=== PATIENT | male | born 1990 | race Caucasian/White ===

== ENCOUNTER 2024-06-20 12:35 | Emergency (ER) | payer OTHER, SELFPAY ==
[2024-06-20 12:40] VITALS: BP 146/74
--- NOTE | 2024-06-20 15:20 | ED.GENMED ---
History of Present Illness
<Elena Russo PA-C - Last Filed: 06/20/24 18:31>
General
Chief Complaint: Chest Pain
Source: patient
Exam Limitations: none
Time Seen by Provider: 06/20/24 14:52
History of Present Illness
History of Present Illness:
34yoM with a history of colitis presenting for evaluation of chest pain. Patient was walking around his house around noon today when he started to experience a tingling sensation in the left arm. This was followed by left sided chest discomfort. He
reports a tightness sensation in his anterior L chest. Pain radiates to the back and his L upper back pain is described as stabbing. His left arm paresthesias are intermittent. Of note, patient is currently on doxycycline for bronchitis. He denies
any diaphoresis, nausea, vomiting, shortness of breath. No tobacco use and he denies any family history of coronary artery disease.
Past History
<Elena Russo PA-C - Last Filed: 06/20/24 18:31>
Past History
ED Past Medical History: Other (Drug abuse)
ED Past Surgical History: None
Patient has exhibited threatening behavior?: No
PSI?: No
Social History
Tobacco: Non-smoker
Alcohol: Former
Drug: Cocaine
Personal: Single
Living: alone
Employment: Employed
Family History
Family History: Other (Noncontributory)
Phy Exam
<Elena Russo PA-C - Last Filed: 06/20/24 18:31>
General Physical Exam
General Presentation: well appearing and no apparent distress
General age: appears stated age
General Skin: warm and dry
General Habitus: normal
ENT Exam
ENT Exam: normocephalic
Cardiovascular Exam
Cardiovascular Exam: regular rate/rhythm, no murmur and normal peripheral pulses (2+ radial pulses bilaterally)
Pulmonary Exam
Pulmonary Exam: lungs clear, no respiratory distress, no rales, no crackles and no rhonchi
Neurological Exam
Neurological Exam: alert
[place] Coma Scale
Eye Opening: Spontaneous
Verbal Response: Oriented
Motor Response: Obeys Commands
GCS Total Score: 15
Skin Exam
Skin Exam: normal color and warm/dry
Psychiatric Exam
Psychiatric Exam: normal mood/affect
<Nela Sigala PA-C - Last Filed: 06/20/24 18:23>
[place] Coma Scale
GCS Total Score: 15
Scores
<Elena Russo PA-C - Last Filed: 06/20/24 18:31>
Heart Score for Chest Pain Patients
STEMI patient?: No
History: Slightly or Non-Suspicious
ECG: Normal
Age: </= 45 years
Risk Factors: No Risk Factors
Troponin: </= Normal Limit
Heart Score for Chest Pain Patients: 0
Heart Score Risk: 2.5% MACE over next 6 weeks
Course
<Elena Russo PA-C - Last Filed: 06/20/24 18:31>
Orders/Labs/Results
Orders:
Orders
06/20/24 12:35
ECG [Electrocardiogram (*1)] Urgent
Reason for Study: Chest Pain
EKG- Treatment ONCE
06/20/24 15:19
CT Chest/abd/pelvis Angio W/wo Urgent
Comment:
Reason For Exam: L sided CP radiating to back, L arm paresthesias
06/20/24 15:28
Complete Blood Count/With Diff Urgent
Comprehensive Metabolic Panel Urgent
Troponin I Urgent
06/20/24 17:06
EKG- Treatment ONCE
06/20/24 17:19
Troponin I Urgent
06/20/24 17:30
Electrocardiogram (*1) Urgent
Reason for Study: Chest Pain
Abnormal Lab Results
06/20/24
15:28
Abs Immat Gran (auto) 0.1 H 10^3/uL
(0-0.05)
Absolute Neuts (auto) 7.0 H 10^3/uL
(1.4-6.5)
Immature Gran % 0.6 H %
(0-0.5)
Neutrophils % 79.5 H %
(42.2-75.2)
Lymphocytes % 13.1 L %
(20.5-51.1)
Carbon Dioxide 31 H mmol/L
(22-30)
06/20/24 15:28
06/20/24 15:28
Vital Signs
Initial and Last Documented VS:
Initial Vital Signs
Temp Pulse Resp BP Pulse Ox
97.8 F 95 16 146/74 98
06/20/24 12:40 06/20/24 12:40 06/20/24 12:40 06/20/24 12:40 06/20/24 12:40
Last Documented Vital Signs
Temp Pulse Resp BP Pulse Ox
97.8 F 95 16 146/74 98
06/20/24 12:40 06/20/24 12:40 06/20/24 12:40 06/20/24 12:40 06/20/24 12:40
Myleslt;Nela Sigala PA-C - Last Filed: 06/20/24 18:23>
Orders/Labs/Results
Orders:
Orders
06/20/24 12:35
ECG [Electrocardiogram (*1)] Urgent
Reason for Study: Chest Pain
EKG- Treatment ONCE
06/20/24 15:19
CT Chest/abd/pelvis Angio W/wo Urgent
Comment:
Reason For Exam: L sided CP radiating to back, L arm paresthesias
06/20/24 15:28
Complete Blood Count/With Diff Urgent
Comprehensive Metabolic Panel Urgent
Troponin I Urgent
06/20/24 17:06
EKG- Treatment ONCE
06/20/24 17:19
Troponin I Urgent
06/20/24 17:30
Electrocardiogram (*1) Urgent
Reason for Study: Chest Pain
Abnormal Lab Results
06/20/24
15:28
Abs Immat Gran (auto) 0.1 H 10^3/uL
(0-0.05)
Absolute Neuts (auto) 7.0 H 10^3/uL
(1.4-6.5)
Immature Gran % 0.6 H %
(0-0.5)
Neutrophils % 79.5 H %
(42.2-75.2)
Lymphocytes % 13.1 L %
(20.5-51.1)
Carbon Dioxide 31 H mmol/L
(22-30)
06/20/24 15:28
06/20/24 15:28
Vital Signs
Initial and Last Documented VS:
Initial Vital Signs
Temp Pulse Resp BP Pulse Ox
97.8 F 95 16 146/74 98
06/20/24 12:40 06/20/24 12:40 06/20/24 12:40 06/20/24 12:40 06/20/24 12:40
Last Documented Vital Signs
Temp Pulse Resp BP Pulse Ox
97.8 F 95 16 146/74 98
06/20/24 12:40 06/20/24 12:40 06/20/24 12:40 06/20/24 12:40 06/20/24 12:40
Myleslt;Elena Russo PA-C - Last Filed: 06/20/24 18:31>
MDM/Problems Addressed
Differential Diagnosis Includes:
34yoM here with L chest pain that started this afternoon. Radiates to the back. Associated with L arm paresthesias. Currently on abx for bronchitis. He is afebrile and hemodynamically stable. He is well appearing in no distress. Exam reassuring.
Differential diagnosis includes but is not limited to: pneumonia, musculoskeletal, aortic dissection, PE, ACS
Initial ED plan: Check cardiac labs, EKG, and CTA dissection study.
<Elena Russo PA-C - Last Filed: 06/20/24 18:31>
*EKG
Interpreted by ED Provider?: Yes
EKG Intrepretation Date: 06/20/24
Heart Rate: 100
Rate: normal
Rhythm: sinus
[place]: normal axis
Interval: normal interval
QRS Pattern: normal QRS
Ischemia: no ischemia
*Critical Care Note
Total Time (30-74mins, 75-104mins- exclusive of procedures): Not Applicable
<Elena Russo PA-C - Last Filed: 06/20/24 18:31>
Update Note
Update Note:
EKG shows NSR without ischemic changes and troponin WNL. Remainder of labs unremarkable. Patient signed out to Nela Sigala PA-C prior to CT results and delta troponin/EKG. Final disposition pending.
<Nela Sigala PA-C - Last Filed: 06/20/24 18:23>
Update Note
Update Note:
EKG shows NSR without ischemic changes and troponin WNL. Remainder of labs unremarkable. Patient signed out to Nela Sigala PA-C prior to CT results and delta troponin/EKG. Final disposition pending.
Nela Sigala
6:22 pm--CTA noted to be negative for dissection. Patient reports that he no longer has any paresthesias in his left upper arm, does get intermittent chest discomfort. Troponin undetectable x 2. Patient stable for discharge, patient will
follow-up with his primary care provider.
ED Attending Note
<Elena Russo PA-C - Last Filed: 06/20/24 18:31>
-
Portions of this chart may have been created with voice recognition software.� Occasional wrong word or��sound alike� substitutions may have occurred due to the inherent limitations of voice recognition software.
Discharge Plan
Departure
Patient Disposition: Home (Routine Discharge)
Date of Disposition: 06/20/24
Time of Disposition: 18:23
Patient with high blood pressure during this ER visit?: Yes
Condition: Good
Discharge Problem:
Chest pain
Instructions: Chest pain, BLOOD PRESSURE
Prescriptions:
No Action
multivitamin [One Daily Multivitamin] 1 EACH tablet
1 tab PO DAILY
diazepam [Valium] 5 mg tablet
5 mg PO BID PRN (Reason: muscle spasm) Qty: 6 0RF
lidocaine [Lidoderm] 5 % adhesive patch,medicated
1 patch topical DAILY Qty: 30 0RF
Referrals:
Frank Gabriel MD [Family Provider] -
Activity Restrictions/Additional Instructions:
Please follow-up with your primary care provider.
PLEASE RETURN EMERGENCY DEPARTMENT SHOULD YOU EXPERIENCE AN ACUTE WORSENING OF YOUR SYMPTOMS, LIGHTHEADEDNESS, DIZZINESS, SYNCOPAL EPISODES, FEVERS OR CHILLS, COUGHING UP BLOOD, OR ANY OTHER SIGNS OR SYMPTOMS CONCERNING TO YOU.
Interventions
Interventions:
*Risk Screen - Suicide Last Done: 06/20/24 12:40
*General Assessment Last Done: 06/20/24 12:40
*Neglect/Abuse Screening Last Done: 06/20/24 12:40
ED- Cardiac Assessment Last Done: 06/20/24 15:37
Discharge Date and Time
Print Language: SERBIAN
[2024-06-20 15:39] LABS: % Basophils 0.7 % (0-2); % Eosinophils 0.6 % (0-6); % Immature Granulocytes 0.6 % (0-0.5); % Lymphocytes 13.1 % (20.5-51.1); % Monocytes 5.5 % (1.7-9.3); % Neutrophils 79.5 % (42.2-75.2); Absolute Basophils 0.1 10^3/uL (0-0.2); Absolute Eosinophils 0.1 10^3/uL (0-0.7); Absolute Immature Granulocytes 0.1 10^3/uL (0-0.05); Absolute Lymphocytes 1.2 10^3/uL (1.2-3.4); Absolute Monocytes 0.5 10^3/uL (0.1-0.6); Hematocrit 41.3 % (39.0-52.0); Hemoglobin 14.5 g/dL (13.0-18.0); Mean Corp Hgb Conc. 35.1 g/dL (33.0-37.0); Mean Corpuscular Hgb 28.3 pg (27.0-31.0); Mean Corpuscular Volume 80.7 fL (80.0-94.0); Mean Platelet Volume 10.3 fL (7.4-10.4); Nucleated Red Blood Cells % 0 % (-); Platelet Count 255 10^3/uL (130-400); Red Blood Cell Count 5.12 10^6/uL (4.70-6.10); Red Cell Dist. Width 11.7 % (11.5-14.5); White Blood Cell Count 8.8 10^3/uL (4.8-10.8)
[2024-06-20 16:06] LABS: ALT (SGPT) 20 U/L (0-50); AST (SGOT) 25 U/L (17-59); Albumin 4.9 g/dl (3.5-5.0); Alkaline Phosphatase 68 U/L (38-126); Blood Urea Nitrogen 16 mg/dl (9-20); Calcium 9.4 mg/dl (8.4-10.2); Carbon Dioxide 31 mmol/L (22-30); Chloride 100 mmol/L (98-107); Glucose 97 mg/dl (70-99); Potassium 4.3 mmol/L (3.5-5.1); Sodium 140 mmol/L (135-145); Total Bilirubin 0.7 mg/dl (0.2-1.3); Total Protein 8.2 g/dl (6.3-8.2); eGFR > 60.00
[2024-06-20 16:18] LABS: Troponin I < 0.012 ng/ml
[2024-06-20 17:55] LABS: Troponin I < 0.012 ng/ml
[2024-06-20 18:00] VITALS: BP 122/88
== END 2024-06-20 18:43 | disposition home or self-care (01) ==
LOC: EMR 12:35
PROVIDERS: Physician Assistant; EMERGENCY PHYSICIAN Emergency Medicine; FAMILY PHYSICIAN Family Medicine
DX: R07.89 Other chest pain (principal)
CPT/HCPCS: 99284; 71275; 74174; 80053; 84484; 85025; 93005; Q9967